=== PATIENT | male | born 1975 | race Caucasian/White ===

== ENCOUNTER 2021-06-12 17:32 | Emergency (ER) | payer OTHER ==
[~2021-06-12] VITALS: Ht 182.9 cm; Wt 140.0 kg
--- NOTE | 2021-06-12 18:42 | RAD ---
EXAM: Left foot, 3 views. HISTORY: Pain and swelling. COMPARISON: None. FINDINGS: 3 views of the left foot are obtained. There is a comminuted displaced fracture at the base of the fifth tarsal. There is overlying soft tissue swelling. No additional fracture is seen. There is a suspected lipoma or cyst within the anterior calcaneus. IMPRESSION: 1. Comminuted fracture the base of the fifth metatarsal. 2. Suspected calcaneal lipoma or cyst. Electronically signed by: Shona Ocasio MD (06/12/2021 6:39 PM) [facility]
[2021-06-12] MEDS ORDERED: IBUPROFEN 600 MG TABLET. PO ONE (18:45)
[2021-06-12] MEDS ORDERED: HYDROcodone/APAP 5/325MG 1 TAB TABLET PO ONE (19:00)
--- NOTE | 2021-06-12 19:13 | PHYS DOC ---
Past History Additional Past Medical Histor: Back pain. (JAIRON IRIZARRY APRN) Past Surgical History: Other Additional Past Surgical Histo: vasectomy (JAIRON IRIZARRY APRN) Alcohol Use: None (JAIRON IRIZARRY APRN) General Adult EDM: Chief Complaint: FOOT INJURY PAIN HPI: HPI: Patient is a 46-year-old male who presents with foot pain. Patient states that he was playing Frisbee when he rolled his foot. Patient's left foot is swollen. Patient still has range of motion and able to bear weight. Patient states that pain is increased with standing. Patient was given ibuprofen prior to arrival. Patient's rating 6/10. (JAIRON IRIZARRY APRN) Review of Systems: Review of Systems: Constitutional: Denies fever or chills Eyes: Denies change in visual acuity HENT: Denies nasal congestion or sore throat Respiratory: Denies cough or shortness of breath Cardiovascular: Denies chest pain or edema GI: Denies abdominal pain, nausea, vomiting, bloody stools or diarrhea : Denies dysuria Musculoskeletal: Reports left foot pain Integument: Bruising and swelling to left foot Neurologic: Denies headache, focal weakness or sensory changes Endocrine: Denies polyuria or polydipsia Lymphatic: Denies swollen glands Psychiatric: Denies depression or anxiety (JAIRON IRIZARRY APRN) Current Medications: Current Meds: Current Medications Medications (Trade) Dose Ordered Sig/Mayra Start Time Stop Time Status Last Admin Dose Admin Acetaminophen/ Hydrocodone Bitart (Lortab 5/325) 1 tab 1X ONCE 06/12/21 19:00 06/12/21 19:01 06/12/21 18:57 1 TAB Ibuprofen (Motrin) 600 mg 1X ONCE 06/12/21 18:45 06/12/21 18:46 DC 06/12/21 18:56 600 MG (JAIRON IRIZARRY APRN) Allergies: Allergies: Allergies Coded Allergies Type Severity Reaction Last Updated Verified No Known Drug Allergies 06/12/21 No (JAIRON IRIZARRY APRN) Physical Exam: PE: Constitutional: Well developed, well nourished, no acute distress, non-toxic appearance. [] HENT: Normocephalic, atraumatic, bilateral external ears normal, oropharynx moist, no oral exudates, nose normal. [] Eyes: PERRLA, EOMI, conjunctiva normal, no discharge. [] Neck: Normal range of motion, no tenderness, supple, no stridor. [] Cardiovascular:Heart rate regular rhythm, no murmur [] Lungs & Thorax: Bilateral breath sounds clear to auscultation [] Abdomen: Bowel sounds normal, soft, no tenderness, no masses, no pulsatile masses. [] Skin: Warm, dry, no erythema, no rash. [] Back: No tenderness, no CVA tenderness. [] Extremities: Left foot tenderness, ROM intact, swelling Neurologic: Alert and oriented X 3, normal motor function, normal sensory function, no focal deficits noted. [] Psychologic: Affect normal, judgement normal, mood normal. [] (JAIRON IRIZARRY APRN) Current Patient Data: Vital Signs: Vital Signs Date Time Temp Pulse Resp B/P (MAP) Pulse Ox O2 Delivery O2 Flow Rate FiO2 06/12/21 18:57 18 95 06/12/21 18:07 97.7 99/65 (JAIRON IRIZARRY APRN) EKG: EKG: [] (JAIRON IRIZARRY APRN) Radiology/Procedures: Radiology/Procedures: []EXAM: Left foot, 3 views. HISTORY: Pain and swelling. COMPARISON: None. FINDINGS: 3 views of the left foot are obtained. There is a comminuted displaced fracture at the base of the fifth tarsal. There is overlying soft tissue swelling. No additional fracture is seen. There is a suspected lipoma or cyst within the anterior calcaneus. IMPRESSION: 1. Comminuted fracture the base of the fifth metatarsal. 2. Suspected calcaneal lipoma or cyst. Electronically signed by: Shona Ocasio MD (06/12/2021 6:39 PM) [facility] (JAIRON IRIZARRY APRN) Heart Score: C/O Chest Pain: No Risk Factors: Risk Factors: DM, Current or recent (<one month) smoker, HTN, HLP, family history of CAD, obesity. Risk Scores: Score 0 - 3: 2.5% MACE over next 6 weeks - Discharge Home Score 4 - 6: 20.3% MACE over next 6 weeks - Admit for Clinical Observation Score 7 - 10: 72.7% MACE over next 6 weeks - Early Invasive Strategies (JAIRON IRIZARRY APRN) Course & Med Decision Making: Course & Med Decision Making Pertinent Labs and Imaging studies reviewed. (See chart for details) [] 46-year-old male presents with left foot pain. Patient rolled his foot while playing Frisbee. Swelling to left foot. Pedal pulses intact. Range of motion intact. Cap refill less than 2 seconds. Patient took ibuprofen prior to arrival. Patient is rating pain 6/10. Patient given 5/325 hydrocodone for discomfort. Left foot x-ray shows comminuted fracture the base of the fifth metatarsal. Discussed results with patient. Posterior splint placed along with crutches. Patient should be nonweightbearing. Patient also can take Tylenol and ibuprofen for pain. Patient given [facility] contact information and instructed to follow-up tomorrow for appointment. Patient sent home with radiology report. (JAIRON IRIZARRY APRN) Dragon Disclaimer: Dragon Disclaimer: This electronic medical record was generated, in whole or in part, using a voice recognition dictation system. (JAIRON IRIZARRY APRN) Attending Co-Sign The patient was seen and interviewed as well as examined at the bedside. The chart was reviewed. The case was discussed. Agree with the plan of care. (WILLA ROY DO) Departure Departure: Impression: Primary Impression: Fracture of base of fifth metatarsal bone of left foot Qualified Codes: S92.352A - Displaced fracture of fifth metatarsal bone, left foot, initial encounter for closed fracture Disposition: HOME / SELF CARE / HOMELESS Condition: STABLE Referrals: PCP,NO (PCP) Patient Instructions: Metatarsal Fracture, Undisplaced Additional Instructions: You are seen in the emergency room after rolling your left foot. X-ray shows a fracture of your fifth metatarsal. You were given 1, 5/325 hydrocodone in the emergency room along with 600 mg of ibuprofen. You were placed in a posterior splint and given crutches. You will need to be nonweightbearing on that left foot. You need to follow-up with [facility] within 1 week. I would call them tomorrow to get a follow-up appointment. You can take ibuprofen and Tylenol for discomfort. It is important to rest, use ice and elevate to help with swelling and pain. EMERGENCY DEPARTMENT GENERAL DISCHARGE INSTRUCTIONS Thank you for coming to [facility] (ED) today and trusting us with you care. We trust that you had a positivie experience in our Emergency Department. If you wish to speak to the department management, you may call the director at [phone]. YOUR FOLLOW UP INSTRUCTIONS ARE FOLLOWS: 1. Do you have a private Doctor? If you do not have a private doctor, please ask for a resource list of physicians or clinics that may be able to assist you with follow up care. 2. The Emergency Physician has interpreted your x-rays. The X-Ray specialist will also review them. If there is a change in the findings, you will be notified in 48 hours when at all possible. 3. A lab test or culture has been done, your results will be reviewed and you will be notified if you need a change in treatment. ADDITIONAL INSTRUCTIONS AND INFORMATION: 1. Your care today has been supervised by a physician who is specially trained in emergency care. Many problems require more than one evaluation for a complete diagnosis and treatment. We recommend that you schedule your follow up appointment as recommended to ensure complete treatment of you illness or injury. If you are unable to obtain follow up care and continue to have a problem, or if your condition worsens, we recommend that you return to the ED. 2. We are not able to safely determine your condition over the phone nor are we able to give sound medical advice over the phone. For these safety reasons, if you call for medical advice we will ask you to come to the ED for further evaluation. 3. If you have any questions regarding these discharge instructions please call the ED at [phone]. SAFETY INFORMATION: In the interest of safety, wellness, and injury prevention; we encourage you to wear your sealbelt, if you smoke; quite smoking, and we encourage family to use a protective helmet for bicycling and other sporting events that present an increased risk for head injury. IF YOUR SYMPTOMS WORSEN OR NEW SYMPTOMS DEVELOP, OR YOU HAVE CONCERNS ABOUT YOUR CONDITION; OR IF YOUR CONDITION WORSENS WHILE YOU ARE WAITING FOR YOUR FOLLOW UP APPOINTMENT; EITHER CONTACT YOUR PRIMARY CARE DOCTOR, THE PHYSICIAN WHOSE NAME AND NUMBER YOU WERE GIVEN, OR RETURN TO THE ED IMMEDIATELY. JAIRON IRIZARRY APRN Jun 12, 2021 19:13 WILLA ROY DO Jun 13, 2021 13:29
[2021-06-12 19:50] VITALS: BP 139/96
== END 2021-06-12 19:50 | disposition home or self-care (01) ==
LOC: ER 17:32
DX: S92.352A Displaced fracture of fifth metatarsal bone, left foot, initial encounter for closed fracture (principal); X50.0XXA Overexertion from strenuous movement or load, initial encounter; Y93.89 Activity, other specified; Y92.89 Other specified places as the place of occurrence of the external cause; Y99.8 Other external cause status
CPT/HCPCS: 29515; 73630; 99283-25